=== PATIENT | male | born 1950 | race Caucasian/White ===

== ENCOUNTER 2016-09-29 11:24 | Emergency (ER) | payer MEDICARE, SELFPAY ==
[~2016-09-29] VITALS: Ht 165.1 cm; Wt 61.2 kg
[2016-12-11] MEDS ORDERED: ZIAC 2.5-6.251 EACH PO (16:53)
== END 2016-09-29 13:15 | disposition short-term general hospital (02) ==
LOC: ER 11:24 → EDSEX 11:26 → ER 13:15
DX: G45.9 Transient cerebral ischemic attack, unspecified (principal); I10 Essential (primary) hypertension; R91.1 Solitary pulmonary nodule; F17.210 Nicotine dependence, cigarettes, uncomplicated
CPT/HCPCS: G0480